=== PATIENT | male | born 1975 | race Asian ===

== ENCOUNTER 2021-02-09 04:30 | Inpatient (IN) | payer MEDICARE ==
--- NOTE | 2021-02-09 05:00 | Emergency Department Report ---
HPI <MALORIE POLANCO - Last Filed: 02/09/21 07:39> - HPI HPI: Room 20 The patient is a 45-year-old male present with a chief complaint of shortness of breath. Patient states he developed a cough 5 days ago. The patient states cough was productive of occasionally red sputum. The patient states he went to the [facility] and was diagnosed with pneumonia and started on 2 antibiotics (patient states he does not remember the name of the antibiotics). The patient states this afternoon he developed shortness of breath and again returned to the [facility] where he was found to be hypoxic to 88% on room air. Patient was subsequently transferred to this ED for further management. Patient denies history of fever or pleurisy. The patient states he tested negative for Covid 5 days ago when his symptoms began and he was retested again today at the [facility] (-). The patient states he received both of his vaccinations for COVID-19 approximately 6 months ago <AARON ALMENDAREZ - Last Filed: 02/13/21 01:35> - General Chief Complaint: Dyspnea/Respdistress Time Seen by Provider: 02/09/21 04:39 ED Past Medical Hx <MALORIE POLANCO - Last Filed: 02/09/21 07:39> - Past Medical History Hx Hypertension: Yes Hx Diabetes: Yes Hx Renal Disease: Yes (ESRD MW) - Surgical History Additional Surgical History: Left upper extremity fistula, PD cath - Family History Family history: no significant - Social History Smoking Status: Former Smoker (None x10 years) Substance Use Type: None (Denies illicit drug use) <AARON ALMENDAREZ - Last Filed: 02/13/21 01:35> - Medications Home Medications: Home Medications Medication Instructions Recorded Confirmed Last Taken Type Amoxicillin/Potassium Clav 2 each PO BID 4 Days #16 tab.er.12h 02/10/21 Unknown Rx [Augmentin XR 1000MG 12HR] Azithromycin [Zithromax TAB] 250 mg PO QDAY 4 Days #4 tablet 02/10/21 Unknown Rx ED Review of Systems ROS: Stated complaint: HYPOXIA Other details as noted in HPI <MALORIE POLANCO - Last Filed: 02/09/21 07:39> ROS: Stated complaint: HYPOXIA Other details as noted in HPI Constitutional: denies: fever Eyes: denies: eye pain ENT: denies: throat pain Respiratory: shortness of breath Cardiovascular: denies: chest pain Endocrine: no symptoms reported Gastrointestinal: denies: abdominal pain Genitourinary: denies: testicular pain Musculoskeletal: denies: back pain Neurological: headache <AARON ALMENDAREZ - Last Filed: 02/13/21 01:35> Physical Exam - Physical Exam Vital Signs: Vital Signs 02/09/21 02/09/21 04:54 04:55 Pulse Rate 111 H Respiratory 27 H 31 H Rate Blood Pressure 186/81 O2 Sat by Pulse 91 88 Oximetry <MALORIE POLANCO - Last Filed: 02/09/21 07:39> - Physical Exam Physical Exam: GENERAL: The patient is well-developed well-nourished male lying on stretcher not appearing to be in acute distress. [] HEENT: Normocephalic. Atraumatic. Extraocular motions are intact. Patient has moist mucous membranes. NECK: Supple. Trachea midline CHEST/LUNGS: No crackles auscultated. There is no respiratory distress noted. HEART/CARDIOVASCULAR: Regular. There is no tachycardia. There is no gallop rub or murmur. ABDOMEN: Abdomen is soft, nontender. Patient has normal bowel sounds. There is no abdominal distention. SKIN: There is no rash. There is 1+ bilateral lower extremity pitting edema. There is no diaphoresis. NEURO: The patient is awake, alert, and oriented. The patient is cooperative. The patient has no focal neurologic deficits. The patient has normal speech. GCS 15 MUSCULOSKELETAL: There is no evidence of acute injury. <AARON ALMENDAREZ - Last Filed: 02/13/21 01:35> ED Course Vital Signs 02/09/21 02/09/21 04:54 04:55 Pulse Rate 111 H Respiratory 27 H 31 H Rate Blood Pressure 186/81 O2 Sat by Pulse 91 88 Oximetry <MALORIE POLANCO - Last Filed: 02/09/21 07:39> - EJ/Peripheral Line Neck L Time Out Performed: Yes Indications: nurses unable to establis Skin Cleansed in Sterile Fashion: Yes Size: 20 Dressing Placed: Tegaderm, tape Patient Tolerated Procedure: well, no complications <MALORIE POLANCO - Last Filed: 02/09/21 07:39> ED Medical Decision Making - Lab Data Result diagrams: 02/09/21 05:07 02/09/21 05:07 - EKG Data -: EKG Interpreted by Me EKG shows normal: sinus rhythm Rate: tachycardia - Medical Decision Making Mr. Quesada is a 45 years old male with end-stage renal disease on hemodialysis. Patient presented with several days of shortness of breath and difficulty in breathing. Patient found to have a bilateral pneumonia. Patient received Rocephin, Zithromax and Decadron. Patient also found to be hyperkalemic. Patient received albuterol, insulin, dextrose and calcium chloride. I discussed the patient with Dr. Araya, from [facility] and she advised to admit the patient to [facility] for further management. I discussed the patient with Dr. Landry, tensile tester on-call and he stated that he will dialyze the patient today. I discussed the patient with Dr. Alonzo he advised to admit the patient to Dr. Banegas. <MALORIE POLANCO - Last Filed: 02/09/21 07:39> - Lab Data Result diagrams: 02/10/21 05:28 02/10/21 08:42 - Radiology Data Radiology results: report reviewed (Chest x-ray), image reviewed (Chest x-ray) interpreted by me: Chest c-sum-xrcxnaode patchy infiltrates. No pneumothorax [address] [address] XRa y Report Signed Patient: POLLY QUESADA MR#: [id number] : 1975 Acct:[id number] Age/Sex: 45 / M ADM Date: 02/09/21 Loc: ED Attending Dr: Ordering Physician: AARON ALMENDAREZ MD Date of Service: 02/09/21 Procedure(s): XR chest 1V ap Accession Number(s): [id number] cc: AARON ALMENDAREZ MD Fluoro Time In Min utes: CHEST 1 VIEW 02/09/2021 5:06 AM INDICATION / CLINICAL INFORMATION: Shortness of breath, hypoxia. COMPARISON: None available. FINDINGS: SUPPORT DEVICES: None. HEART / MEDIASTINUM: No significant abnormality. LUNGS / PLEURA: Moderate to severe bilateral airspace disease with small left pleural effusion No pneumothorax. ADDITIONAL FINDINGS: No significant additional findings. IMPRESSION: 1. Bilateral pneumonia Signer Name: Arthur Craft MD Signed: 02/09/2021 5:12 AM Workstation Name: [id number] Transcribed By: TL Dictated By: Arthur Craft MD Electronically Authenticated By: Arthur Craft MD Signed Date/Time: 02/09/21511 DD/ 0 TD/TT: Print Cancel - Differential Diagnosis Pneumonia, respiratory failure, volume overload <AARON ALMENDAREZ - Last Filed: 02/13/21 01:35> Critical Care Time: Yes Critical care time in (mins) excluding proc time.: 30 Critical care attestation.: If time is entered above; I have spent that time in minutes in the direct care of this critically ill patient, excluding procedure time. <MALORIE POLANCO - Last Filed: 02/09/21 07:39> Critical care attestation.: If time is entered above; I have spent that time in minutes in the direct care of this critically ill patient, excluding procedure time. <AARON ALMENDAREZ - Last Filed: 02/13/21 01:35> ED Disposition Is pt being admited?: Yes <MALORIE POLANCO - Last Filed: 02/09/21 07:39> Is pt being admited?: Yes Does the pt Need Aspirin: No <AARON ALMENDAREZ - Last Filed: 02/13/21 01:35> Clinical Impression: Bilateral pneumonia, Hypoxia, Hyperkalemia, Acute respiratory failure with hypoxia Disposition: ADMITTED INPATIENT Condition: Stable
--- NOTE | 2021-02-09 05:17 | XRay Report ---
CHEST 1 VIEW 02/09/2021 5:06 AM INDICATION / CLINICAL INFORMATION: Shortness of breath, hypoxia. COMPARISON: None available. FINDINGS: SUPPORT DEVICES: None. HEART / MEDIASTINUM: No significant abnormality. LUNGS / PLEURA: Moderate to severe bilateral airspace disease with small left pleural effusion No pne umothorax. ADDITIONAL FINDINGS: No significant additional findings. IMPRESSION: 1. Bilateral pneumonia Signer Name: Arthur Craft MD Signed: 02/09/2021 5:12 AM Workstation Name: [id number]
[2021-02-09 05:35] LABS: Basophils # (Auto) 0.1 K/mm3 (0.0-0.1); Basophils % (Auto) 0.8 % (0.0-1.8); Eosinophils % (Auto) 0.4 % (0.0-4.3); Hematocrit 26.1 % (35.5-45.6); Hemoglobin 7.9 gm/dl (11.8-15.2); Lymphocytes # (Auto) 0.8 K/mm3 (1.2-5.4); Lymphocytes % (Auto) 6.2 % (13.4-35.0); Mean Corpuscular HGB Conc 30 % (32-34); Mean Corpuscular Volume 73 fl (84-94); Monocytes # (Auto) 0.8 K/mm3 (0.0-0.8); Monocytes % (Auto) 6.1 % (0.0-7.3); Platelet Count 269 K/mm3 (140-440); Red Blood Count 3.58 M/mm3 (3.65-5.03)
[2021-02-09 05:40] LABS: Red Cell Distribution Width 21.5 % (13.2-15.2)
[2021-02-09 05:45] LABS: INR 1.07 (0.87-1.13)
[2021-02-09] MEDS ORDERED: CALCIUM GLUCONATE 1,000 MG in SODIUM CHLORIDE 0.9% 100 ML IV ONE (05:57)
[2021-02-09] MEDS: cefTRIAXone/NS 1 GM/50 ML 1 GM/50 ML BAG IV ONE ×2 (06:18→06:56)
[2021-02-09] MEDS: AZITHROMYCIN/NS 500 MG/250 ML 500 MG/250 ML BAG IV ONE ×2 (06:18→07:21)
[2021-02-09] MEDS: INSULIN REGULAR, HUMAN 100 UNITS/1 ML IV ONE ×2 (06:19→06:56)
[2021-02-09] MEDS: DEXTROSE 50% IN WATER (25GM) 50 ML SYRINGE IV ONE ×2 (06:19→06:56)
[2021-02-09] MEDS: SODIUM BICARB 8.4% 50 MEQ/50 ML SYRINGE IV ONE ×2 (06:20→06:57)
[2021-02-09] MEDS ORDERED: dexAMETHasone 4 MG/ML VIAL IV ONE (06:49)
[2021-02-09] MEDS ORDERED: oxyCODONE /ACETAMINOPHEN 5-325MG TAB PO PRN (08:00)
[2021-02-09] MEDS ORDERED: ONDANSETRON 4 MG/2 ML INJ IV PRN (08:00)
[2021-02-09] MEDS ORDERED: ACETAMINOPHEN 325 MG TAB PO PRN (08:00)
[2021-02-09] MEDS ORDERED: MORPHINE 4 MG/1 ML INJ IV PRN (08:00)
--- NOTE | 2021-02-09 08:06 | Event Note ---
Date: 02/09/21 Hemodialysis consent obtained from patient.
[2021-02-09] MEDS ORDERED: HEPARIN 10,000 UNITS/10 ML VIAL IV PRN (08:07)
[2021-02-09] MEDS ORDERED: SODIUM CHLORIDE 0.9% 100 ML IV PRN (08:07)
[2021-02-09] MEDS ORDERED: EPOETIN ALFA-EPBX 10,000 UNIT/1 ML VIAL SUB-Q PRN (08:07)
[2021-02-09] MEDS: HEPARIN 5,000 UNIT/1 ML VIAL SUB-Q SCH ×2 (09:20→16:07)
--- NOTE | 2021-02-09 12:21 | Consultation ---
History of Present Illness - Reason for Consult Consult date: 02/09/21 end stage renal disease, hyperkalemia - History of Present Illness The patient is a 45 YO male with history significant for Morbid Obesity, HTN, DM-2, Anemia, ESRD on HD(MWF) and diet non-compliance who presented to [facility] ED 02/09 with a complaint of shortness of breath. Patient states that he developed a cough productive of occasional reddish sputum few days ago. The patient states he went to the [facility] and was diagnosed with pneumonia and started on 2 antibiotics (patient states he does not remember the name of the antibiotics). Yesterday afternoon patient developed shortness of breath and again returned to the [facility] where he was found to be hypoxic to 88% on room air. Patient was subsequently transferred to this ED for further management. Patient denies history of fever, chills, N, V, D, abd pain, cp, pleurisy, dizziness, syncope or rash. Patient tested negative for Covid. The patient states he received both of his vaccinations for COVID-19 approximately 6 months ago. CXR showed b/l PNA. Labs significant for K 5.7 and Hb 7.9. Nephrology was consulted for ESRD management. Medications and Allergies Allergies Allergy/AdvReac Type Severity Reaction Status Date / Time No Known Allergies Allergy Verified 02/09/21 06:08 Active Meds: Active Medications Acetaminophen (Acetaminophen 325 Mg Tab) 650 mg PO Q4H PRN PRN Reason: Pain MILD(1-3)/Fever >100.5/BEDOLLA Heparin Sodium (Porcine) (Heparin 5,000 Unit/1 Ml Vial) 5,000 unit SUB-Q Q8HR SHARATH Last Admin: 02/09/21 09:20 Dose: Not Given Documented by: Heparin Sodium (Porcine) (Heparin 10,000 Units/10 Ml Vial) 3,000 unit IV ALEENA PRN PRN Reason: hemodialysis Sodium Chloride (Nacl 0.9%) 100 mls @ 999 mls/hr IV ALEENA PRN PRN Reason: Hypotension Morphine Sulfate (Morphine 4 Mg/1 Ml Inj) 4 mg IV Q4H PRN PRN Reason: Pain , Severe (7-10) Ondansetron HCl (Ondansetron 4 Mg/2 Ml Inj) 4 mg IV Q8H PRN PRN Reason: Nausea And Vomiting Oxycodone/Acetaminophen (Oxycodone /Acetaminophen 5-325mg Tab) 1 tab PO Q6H PRN PRN Reason: Pain, Moderate (4-6) Sodium Chloride (Sodium Chloride 0.9% 10 Ml Flush Syringe) 10 ml IV BID SHARATH Last Admin: 02/09/21 11:49 Dose: 10 ml Documented by: Sodium Chloride (Sodium Chloride 0.9% 10 Ml Flush Syringe) 10 ml IV PRN PRN PRN Reason: LINE FLUSH Review of Systems All systems: negative Exam - Vital Signs Vital signs: Vital Signs Resp Pulse Ox 27 H 91 02/09/21 04:54 02/09/21 04:54 Results - Lab Results 02/09/21 05:07 02/09/21 05:07 Most recent lab results Calcium 8.0 mg/dL (8.4-10.2) L 02/09/21 05:07 Assessment and Plan 1. ESRD: Patient is on maintenance hemodialysis, MWF schedule. Meds dosage based on GFR. Last outpatient HD 02/07. Hemodialysis: today. 2. FEN: Hyeprkalemia, HD today. Volume overload, UF with HD as tolerated. Limit fluid intake. Monitor lytes and volume status. 3. Acute hypoxic resp failure: Likely 2/2 PNA. Volume control thru HD. Supplemental O2. 4. Severe sepsis, POA: 2/2 PNA. Abx. Follow cultures. 5. Anemia, POA: Epogen with HD as needed. Monitor. 6. Hypertension: Adjust meds as needed. Volume control with HD. Monitor. 7. Diet compliance encouraged. Subjective: Patient was seen and examined at the bedside. General Appearance: General appearance: well-developed, appears stated age, obese, resp distress noted, on NRB HEENT: ATNC Neck: trachea midline Respiratory: rales heard Heart: regular, S1S2, no murmur Abdomen: soft, bowel sounds heard, not tender Integumentary: no rash, warm and dry Neurologic: AO, able to move extremities Ext: trace LE edema Hemodialysis access: L arm AVF
[2021-02-09 13:00] LABS: Hepatitis C Virus Antibody Non-Reactive (NonReactive)
[2021-02-09 13:20] LABS: Hepatitis B Surface Antigen Nonreactive (Negative)
--- NOTE | 2021-02-09 14:56 | History and Physical Report ---
History of Present Illness Date of examination: 02/09/21 Date of admission: 02/09/21 07:50 Chief complaint: "Trouble breathing" History of present illness: 45-year-old male who presented with complaints of shortness of breath. First developed a cough 5 days ago after being around his son who had a viral illness. He visited his PCP and was diagnosed with pneumonia. He was started on antibiotics at that time. Since that time his shortness of breath had worsened. He was found to be hypoxic to 88% on room air. He was admitted for acute hypoxic respiratory failure. Labs were notable for hyperkalemia of 5.7 and elevated lactate. Patient received insulin, D50 and calcium gluconate for hyperkalemia. Nephrology was consulted for dialysis. Past History Past Medical History: ESRD, hypertension Past Surgical History: No surgical history Social history: lives with family, full code, other (occasional cigar use) Family history: no significant family history Medications and Allergies Allergies Allergy/AdvReac Type Severity Reaction Status Date / Time No Known Allergies Allergy Verified 02/09/21 06:08 Home Medications Medication Instructions Recorded Confirmed Last Taken Type Amoxicillin/Potassium Clav 2 each PO BID 4 Days #16 tab.er.12h 02/10/21 Unknown Rx [Augmentin XR 1000MG 12HR] Azithromycin [Zithromax TAB] 250 mg PO QDAY 4 Days #4 tablet 02/10/21 Unknown Rx Active Meds: Active Medications Acetaminophen (Acetaminophen 325 Mg Tab) 650 mg PO Q4H PRN PRN Reason: Pain MILD(1-3)/Fever >100.5/BEDOLLA Heparin Sodium (Porcine) (Heparin 5,000 Unit/1 Ml Vial) 5,000 unit SUB-Q Q8HR [facility] Last Admin: 02/09/21 09:20 Dose: Not Given Documented by: Heparin Sodium (Porcine) (Heparin 10,000 Units/10 Ml Vial) 3,000 unit IV ALEENA PRN PRN Reason: hemodialysis Sodium Chloride (Nacl 0.9%) 100 mls @ 999 mls/hr IV ALEENA PRN PRN Reason: Hypotension Azithromycin (Zithromax/Ns) 500 mg in 250 mls @ 250 mls/hr IV Q24H [facility]ATH Ceftriaxone Sodium (Rocephin/Ns 2 Gm/100 Ml) 2 gm in 100 mls @ 200 mls/hr IV Q24H SHARATH Morphine Sulfate (Morphine 4 Mg/1 Ml Inj) 4 mg IV Q4H PRN PRN Reason: Pain , Severe (7-10) Ondansetron HCl (Ondansetron 4 Mg/2 Ml Inj) 4 mg IV Q8H PRN PRN Reason: Nausea And Vomiting Oxycodone/Acetaminophen (Oxycodone /Acetaminophen 5-325mg Tab) 1 tab PO Q6H PRN PRN Reason: Pain, Moderate (4-6) Sodium Chloride (Sodium Chloride 0.9% 10 Ml Flush Syringe) 10 ml IV BID SHARATH Last Admin: 02/09/21 11:49 Dose: 10 ml Documented by: Sodium Chloride (Sodium Chloride 0.9% 10 Ml Flush Syringe) 10 ml IV PRN PRN PRN Reason: LINE FLUSH Review of Systems All systems: negative Ears, nose, mouth and throat: nasal congestion Respiratory: cough with sputum, shortness of breath, sleep apnea Exam - Physical Exam Narrative exam: GENERAL: Well-developed well-nourished. Sitting on the side of the bed in no acute distress. HEENT: Nonrebreather at 15 L/min NECK: Supple. Left EJ IV. CHEST/LUNGS: Coarse breath sounds bilaterally. HEART/CARDIOVASCULAR: RRR. No murmur, rubs or gallops appreciated. ABDOMEN: +BS. NT/ND. SKIN: No rashes noted. NEURO: No focal motor deficit. Follows all commands and is ambulatory. MUSCULOSKELETAL: No joint effusion EXTREMITIES: Right upper extremity AV fistula. No cyanosis, clubbing or edema. PSYCH: Cooperative. - Constitutional Vitals: Temp Pulse Resp BP Pulse Ox 101 F H 96 H 24 180/69 97 02/09/21 10:33 02/09/21 13:45 02/09/21 10:33 02/09/21 13:45 02/09/21 10:33 Results - Labs CBC & Chem 7: 02/10/21 05:28 02/10/21 08:42 Labs: Laboratory Last Values WBC 13.6 K/mm3 (4.5-11.0) H 02/09/21 05:07 RBC 3.58 M/mm3 (3.65-5.03) L 02/09/21 05:07 Hgb 7.9 gm/dl (11.8-15.2) L 02/09/21 05:07 Hct 26.1 % (35.5-45.6) L 02/09/21 05:07 MCV 73 fl (84-94) L 02/09/21 05:07 MCH 22 pg (28-32) L 02/09/21 05:07 MCHC 30 % (32-34) L 02/09/21 05:07 RDW 21.5 % (13.2-15.2) H 02/09/21 05:07 Plt Count 269 K/mm3 (140-440) 02/09/21 05:07 Lymph % (Auto) 6.2 % (13.4-35.0) L 02/09/21 05:07 Carson % (Auto) 6.1 % (0.0-7.3) 02/09/21 05:07 Eos % (Auto) 0.4 % (0.0-4.3) 02/09/21 05:07 Baso % (Auto) 0.8 % (0.0-1.8) 02/09/21 05:07 Lymph # (Auto) 0.8 K/mm3 (1.2-5.4) L 02/09/21 05:07 Carson # (Auto) 0.8 K/mm3 (0.0-0.8) 02/09/21 05:07 Eos # (Auto) 0.0 K/mm3 (0.0-0.4) 02/09/21 05:07 Baso # (Auto) 0.1 K/mm3 (0.0-0.1) 02/09/21 05:07 Seg Neutrophils % 86.5 % (40.0-70.0) H 02/09/21 05:07 Seg Neutrophils # 11.8 K/mm3 (1.8-7.7) H 02/09/21 05:07 PT 15.1 Sec. (12.2-14.9) H 02/09/21 05:07 INR 1.07 (0.87-1.13) 02/09/21 05:07 Sodium 140 mmol/L (137-145) 02/09/21 05:07 Potassium 5.7 mmol/L (3.6-5.0) H 02/09/21 05:07 Chloride 92.4 mmol/L (98-107) L 02/09/21 05:07 Carbon Dioxide 33 mmol/L (22-30) H 02/09/21 05:07 Anion Gap 20 mmol/L 02/09/21 05:07 BUN 33 mg/dL (9-20) H 02/09/21 05:07 Creatinine 9.6 mg/dL (0.8-1.3) H 02/09/21 05:07 Estimated GFR 6 ml/min 02/09/21 05:07 BUN/Creatinine Ratio 3 % 02/09/21 05:07 Glucose 151 mg/dL (75-100) H 02/09/21 05:07 Lactic Acid 2.10 mmol/L (0.7-2.0) H* 02/09/21 05:07 Calcium 8.0 mg/dL (8.4-10.2) L 02/09/21 05:07 Procalcitonin 1.18 ng/mL (<0.15) 02/09/21 10:52 Coronavirus (PCR) Negative (Negative) 02/09/21 08:00 Hepatitis A IgM Ab Non-reactive (NonReactive) 02/09/21 10:52 Hep Bs Antigen Nonreactive (Negative) 02/09/21 10:52 Hep B Core IgM Ab Non-reactive (NonReactive) 02/09/21 10:52 Hepatitis C Antibody Non-reactive (NonReactive) 02/09/21 10:52 Microbiology: Microbiology 02/09/21 05:02 Peripheral/Venous Blood Culture - Preliminary Culture in Progress 02/09/21 05:07 Peripheral/Venous Blood Culture - Preliminary Culture in Progress - Imaging and Cardiology Chest x-ray: report reviewed, image reviewed Assessment and Plan Assessment and plan: #Acute hypoxic respiratory failure -Oxygen saturation 88% on arrival -Initially on 15 L nonrebreather, titrated to 10 -Will wean as tolerated -Chest x-ray -Covid PCR negative x3 -S/p Decadron, Rocephin, azithromycin in ED -We will continue Rocephin and azithromycin x5 days -D-dimer, ferritin, LDH, procalcitonin, Legionella and mycoplasma antigen pending -If worsens, will consider Pulmonary consult #Sepsis -WBC count 13.6, heart rate 111, afebrile -Blood cultures collected, will follow -Source pneumonia as of now #Pneumonia #Hyperkalemia -K 5.7 -Treated medically with insulin, D50 and calcium gluconate -We will defer treatment to Nephrology #Elevated lactate -Lactate 2.10, will repeat -We will hold off of fluids due to patient's volume status and need for dialysis #ESRD on HD -Hemodialysis on MWF schedule -Nephrology consulted, plan for HD today #Hypertension -Patient reports history of hypertension, unable to recall medications -Will obtain up-to-date med rec from patient and his . #Macrocytic anemia -H&H 7.9/26.1 -Likely secondary to ESRD #History of obstructive sleep apnea -CPAP at night Advance Directives: No VTE prophylaxis?: Chemical Plan of care discussed with patient/family: Yes
[2021-02-09] MEDS: hydrALAZINE 25 MG TAB PO SCH (21:59)
[2021-02-10] MEDS: HEPARIN 5,000 UNIT/1 ML VIAL SUB-Q SCH (00:02)
[2021-02-10] MEDS ORDERED: CALCIUM GLUCONATE 1,000 MG in SODIUM CHLORIDE 0.9% 100 ML IV ONE (00:21)
[2021-02-10] MEDS ORDERED: SODIUM POLYSTYRENE 15 GM/60 ML ORAL LIQD PO ONE ×2 (00:21→06:38)
[2021-02-10] MEDS ORDERED: INSULIN REGULAR, HUMAN 100 UNITS/1 ML SUB-Q ONE (00:22)
[2021-02-10] MEDS ORDERED: DEXTROSE 50% IN WATER (25GM) 50 ML SYRINGE IV ONE (00:22)
[2021-02-10] MEDS ORDERED: MELATONIN 5 MG TAB PO ONE (00:24)
[2021-02-10] MEDS ORDERED: SODIUM BICARB 8.4% 50 MEQ/50 ML SYRINGE IV ONE (00:24)
[2021-02-10] MEDS: hydrALAZINE 25 MG TAB PO SCH (05:41)
[2021-02-10 06:24] LABS: Basophils % (Auto) 0.4 % (0.0-1.8); Eosinophils % (Auto) 0.5 % (0.0-4.3); Hematocrit 26.2 % (35.5-45.6); Hemoglobin 7.9 gm/dl (11.8-15.2); Lymphocytes # (Auto) 0.5 K/mm3 (1.2-5.4); Lymphocytes % (Auto) 5.3 % (13.4-35.0); Mean Corpuscular HGB Conc 30 % (32-34); Mean Corpuscular Volume 74 fl (84-94); Monocytes # (Auto) 0.6 K/mm3 (0.0-0.8); Monocytes % (Auto) 6.2 % (0.0-7.3); Platelet Count 145 K/mm3 (140-440); Red Blood Count 3.53 M/mm3 (3.65-5.03)
[2021-02-10 06:28] LABS: Red Cell Distribution Width 21.9 % (13.2-15.2)
[2021-02-10 06:30] LABS: Albumin 3.3 g/dL (3.9-5); Calcium 8.3 mg/dL (8.4-10.2)
[2021-02-10] MEDS ORDERED: INSULIN LISPRO 100 UNIT/ML SUB-Q SCH (07:30)
--- NOTE | 2021-02-10 07:49 | Nuclear Medicine Report ---
NUCLEAR MEDICINE PERFUSION SCAN INDICATION: rule out PE. Shortness of breath. CORRELATION: AP chest performed yesterday at 0506 hours RADIOPHARMACEUTICAL: Perfusion: 5.3 mCi Tc-99m MAA given IV FINDINGS: Perfusion images show symmetric and uniform radiotracer distribution throughout bilateral lung zones with no evidence for segmental perfusion defects. Normal cardiac silhouette. IMPRESSION: Low probability perfusion scan for pulmonary embolism. Signer Name: Trever Saha Jr, MD Signed: 02/10/2021 7:45 AM Workstation Name: [id number]
[2021-02-10] MEDS ORDERED: cefTRIAXone/NS 2 GM/100 ML 2 GM/100 ML BAG IV SCH (08:00)
[2021-02-10] MEDS ORDERED: AZITHROMYCIN/NS 500 MG/250 ML 500 MG/250 ML BAG IV SCH (08:00)
[2021-02-10] MEDS ORDERED: cefTRIAXone/NS 1 GM/50 ML 1 GM/50 ML BAG IV SCH (08:00)
[2021-02-10] MEDS ORDERED: HEPARIN 5,000 UNIT/1 ML VIAL SUB-Q SCH (08:00)
--- NOTE | 2021-02-10 10:43 | Progress Note ---
Assessment and Plan 1. ESRD: Patient is on maintenance hemodialysis, MWF schedule. Meds dosage based on GFR. Last outpatient HD 02/07. Hemodialysis: 02/09. HD today. 2. FEN: Hyperkalemia, HD today. Volume overload, UF with HD as tolerated. Limit fluid intake. Monitor lytes and volume status. 3. Acute hypoxic resp failure: Likely 2/2 PNA. Volume control thru HD. Supplemental O2 as needed. 4. Severe sepsis, POA: 2/2 PNA. Abx. Follow cultures. 5. Anemia, POA: Epogen with HD as needed. Monitor. 6. Hypertension: Adjust meds as needed. Volume control with HD. Monitor. 7. Diet compliance encouraged. Subjective: Patient was seen and examined at the bedside. Doing ok. General Appearance: General appearance: well-developed, appears stated age, obese, no distress noted HEENT: ATNC Neck: trachea midline Respiratory: diminished breath sounds Heart: regular, S1S2, no murmur Abdomen: soft, bowel sounds heard, not tender Integumentary: no rash, warm and dry Neurologic: AO, able to move extremities Ext: trace LE edema Hemodialysis access: L arm AVF Subjective Date of service: 02/10/21 Objective - Vital Signs Vital signs: Vital Signs - 12hr 02/10/21 02/10/21 01:30 05:07 Temperature 98.3 F Pulse Rate 85 79 Respiratory 20 Rate Blood Pressure 152/62 O2 Sat by Pulse 95 96 Oximetry - Lab 02/10/21 05:28 02/10/21 08:42 Most recent lab results Calcium 8.3 mg/dL (8.4-10.2) L 02/10/21 05:28 Medications & Allergies - Medications Allergies/Adverse Reactions: Allergies No Known Allergies Allergy (Verified 02/09/21 06:08) Home Medications: Home Medications Medication Instructions Recorded Confirmed Last Taken Type Amoxicillin/Potassium Clav 2 each PO BID 4 Days #16 tab.er.12h 02/10/21 Unknown Rx [Augmentin XR 1000MG 12HR] Azithromycin [Zithromax TAB] 250 mg PO QDAY 4 Days #4 tablet 02/10/21 Unknown Rx Active Medications: Generic Name Dose Route Start Last Admin Trade Name Freq PRN Reason Stop Dose Admin Acetaminophen 650 mg 02/09/21 08:00 Acetaminophen 325 Mg Tab PO Q4H PRN Pain MILD(1-3)/Fever >100.5/BEDOLLA Heparin Sodium (Porcine) 3,000 unit 02/09/21 08:07 Heparin 10,000 Units/10 Ml Vial IV ALEENA PRN hemodialysis Heparin Sodium (Porcine) 5,000 unit 02/10/21 08:00 Heparin 5,000 Unit/1 Ml Vial SUB-Q Q8H [facility] Hydralazine HCl 50 mg 02/09/21 22:00 02/10/21 05:41 Hydralazine 25 Mg Tab PO 50 mg Q8HR SHARATH Administration Sodium Chloride 100 mls @ 999 mls/hr 02/09/21 08:07 Nacl 0.9% IV ALEENA PRN Hypotension Azithromycin 500 mg in 250 mls @ 250 mls/hr 02/10/21 08:00 Zithromax/Ns IV 02/13/21 08:59 Q24H [facility] Ceftriaxone Sodium 2 gm in 100 mls @ 200 mls/hr 02/10/21 08:00 Rocephin/Ns 2 Gm/100 Ml IV 02/13/21 08:59 Q24H [facility] Insulin Human Lispro 0 unit 02/10/21 07:30 Insulin Lispro 100 Unit/Ml SUB-Q ACHS [facility] Protocol Morphine Sulfate 4 mg 02/09/21 08:00 Morphine 4 Mg/1 Ml Inj IV Q4H PRN Pain , Severe (7-10) Ondansetron HCl 4 mg 02/09/21 08:00 Ondansetron 4 Mg/2 Ml Inj IV Q8H PRN Nausea And Vomiting Oxycodone/Acetaminophen 1 tab 02/09/21 08:00 Oxycodone /Acetaminophen 5-325mg Tab PO Q6H PRN Pain, Moderate (4-6) Sodium Chloride 10 ml 02/09/21 10:00 02/09/21 22:02 Sodium Chloride 0.9% 10 Ml Flush Syringe IV 10 ml BID SHARATH Administration Sodium Chloride 10 ml 02/09/21 08:00 Sodium Chloride 0.9% 10 Ml Flush Syringe IV PRN PRN LINE FLUSH
--- NOTE | 2021-02-10 15:28 | Discharge Summary ---
Providers - Providers Date of Admission: 02/09/21 07:50 Date of discharge: 02/10/21 Attending physician: CAMERON WHEELER MD 02/09/21 07:38 Consult to Physician [CONS] Stat Comment: Consulting Provider: GATO CARTER Physician Instructions: Reason For Exam: End-stage renal disease needing dialysis Hospitalization Reason for admission: Shortness of breath Condition: Stable Hospital course: 45-year-old male who presented with complaints of shortness of breath. He was found to be hypoxic to 88% on room air. He was admitted for acute hypoxic respiratory failure. Labs were notable for hyperkalemia of 5.7 and elevated lactate. Patient received insulin, D50 and calcium gluconate for hyperkalemia. Nephrology was consulted for dialysis. He was started on azithromycin and Rocephin for 5-day total course. COVID-19 test was negative. Patient was dialyzed and discharged once stable. Disposition: 01 HOME / SELF CARE / HOMELESS Final Discharge Diagnosis (Prints w/discharge instructions): ESRD on HD. Macrocytic anemia. Acute hypoxic respiratory failure. Pneumonia Time spent for discharge: 10 minutes Core Measure Documentation - Palliative Care Palliative Care/ Comfort Measures: Not Applicable - Core Measures Any of the following diagnoses?: none Exam - Physical Exam Narrative exam: GENERAL: Well-developed well-nourished. Sitting on the side of the bed in no acute distress. NECK: Supple. Left EJ IV. CHEST/LUNGS: Coarse breath sounds bilaterally. HEART/CARDIOVASCULAR: RRR. No murmur, rubs or gallops appreciated. ABDOMEN: +BS. NT/ND. SKIN: No rashes noted. NEURO: No focal motor deficit. Follows all commands and is ambulatory. MUSCULOSKELETAL: No joint effusion EXTREMITIES: Right upper extremity AV fistula. No cyanosis, clubbing or edema. PSYCH: Cooperative. - Constitutional Vitals: Temp Pulse Resp BP Pulse Ox 97.9 F 87 16 165/72 100 02/10/21 14:35 02/10/21 14:35 02/10/21 14:35 02/10/21 14:35 02/10/21 14:35 Plan Care Plan Goals: Complete the full course of antibiotics. Follow-up with your primary care in [place] in 1 week. Resume dialysis at your center. Assessment: Patient improved dramatically. No longer requiring oxygen supplementation. Started on antibiotics for 5-day total course. VQ scan negative for pulmonary embolism. Follow up with: WAI GAXIOLA [Other] - 7 Days Prescriptions: Amoxicillin/Potassium Clav [Augmentin XR 1000MG 12HR] 2 each PO BID 4 Days #16 tab.er.12h Azithromycin [Zithromax TAB] 250 mg PO QDAY 4 Days #4 tablet
[2021-02-10 19:19] VITALS: BP 156/57
--- NOTE | 2021-02-16 14:20 | Electrocardiograph Report ---
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
--- NOTE | 2021-02-16 14:33 | Electrocardiograph Report ---
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
== END 2021-02-10 18:00 | disposition home or self-care (01) | DRG 871 ==
LOC: ED 04:30 → 3A 07:50
PROVIDERS: ADMIT Student in an Organized Health Care Education/Training Program; ATTEND Student in an Organized Health Care Education/Training Program
PROC: 5A1D70Z Performance of Urinary Filtration, Intermittent, Less than 6 Hours Per Day (ICD-10-PCS; principal; 2021-02-09)
PROC: 5A09357 Assistance with Respiratory Ventilation, Less than 24 Consecutive Hours, Continuous Positive Airway Pressure (ICD-10-PCS; 2021-02-10)
PROC: 5A1D70Z Performance of Urinary Filtration, Intermittent, Less than 6 Hours Per Day (ICD-10-PCS; 2021-02-10)
DX: A41.9 Sepsis, unspecified organism (principal); J96.01 Acute respiratory failure with hypoxia; J18.9 Pneumonia, unspecified organism; N18.6 End stage renal disease; Z68.41 Body mass index [BMI] 40.0-44.9, adult; I12.0 Hypertensive chronic kidney disease with stage 5 chronic kidney disease or end stage renal disease; E87.5 Hyperkalemia; D53.9 Nutritional anemia, unspecified; G47.33 Obstructive sleep apnea (adult) (pediatric); Z20.822 Contact with and (suspected) exposure to COVID-19; E11.22 Type 2 diabetes mellitus with diabetic chronic kidney disease; Z99.2 Dependence on renal dialysis; Z87.891 Personal history of nicotine dependence; E66.01 Morbid (severe) obesity due to excess calories; R65.20 Severe sepsis without septic shock; Z71.3 Dietary counseling and surveillance
CPT/HCPCS: 36415; 71045; 78580; 80048; 80053; 80074; 82140; 82728; 82962; 83615; 84132; 84145; 85025; 85379; 85610; 86738; 87040; 93005; 94660; 94760; G0378; A9540; J0456; J0610; J0696; J1100; J1644; J1815; U0003